=== PATIENT | male | born 1940 | race American Indian/Alaskan Native ===

== ENCOUNTER 2017-05-15 10:37 | Day surgery (SDC) | payer MEDICARE ==
--- NOTE | 2017-05-15 11:58 | CP.SDSHP ---
Same Day Surgery H & P - History Proposed Procedure: colonoscopy - Previous Medical/Surgical History Cardiac: Hypertension Endocrine/Metabolic: Diabetes - Allergies Allergies: Allergies No Known Allergies Allergy (Unverified 05/15/17 11:04) - Physical Exam Vital Signs: Vital Signs 05/15/17 11:13 Temperature 97 F L Pulse Rate 66 Respiratory 19 Rate Blood Pressure 154/82 H O2 Sat by Pulse 97 Oximetry - Date & Time Date: 05/15/17 Time: 11:58 Short Stay Discharge - Short Stay Discharge Admitting Diagnosis/Reason for Visit: SCREENING Disposition: HOME/ ROUTINE
[2017-05-15] MEDS ORDERED: Propofol 10 mg/ml Inj (20 ML) ONE (12:24)
[2017-05-15] MEDS ORDERED: Midazolam 2 MG/2 ML VIAL ONE (12:25)
[2017-05-15 13:20] VITALS: TEMP 97.8; O2SAT 100
[2017-05-15 13:28] VITALS: RESP 15
[2017-05-15 14:16] VITALS: BP 150/90; PULSE 102
== END 2017-05-15 14:10 | disposition home or self-care (01) ==
LOC: C.ENDO 10:37
PROVIDERS: ATTEND Colon & Rectal Surgery
DX: K62.1 Rectal polyp (principal); K57.30 Diverticulosis of large intestine without perforation or abscess without bleeding; K64.8 Other hemorrhoids
CPT/HCPCS: 45388; 82948; 88305; J2250; J2704

== ENCOUNTER 2019-02-12 07:53 | Outpatient (CLI) | payer MEDICARE | END 2019-02-12 07:54 | disposition home or self-care (01) | LOC: C.CARD 07:53 ==